=== PATIENT | male | born 1950 | race Hispanic/Latino ===

== ENCOUNTER 2024-04-02 13:59 | Emergency (ER) | payer OTHER, SELFPAY ==
[2024-04-02 14:18] VITALS: BP 120/84
--- NOTE | 2024-04-02 14:27 | ED.GENMED ---
ED Provider Triage
-
Patient seen by provider in Triage?: Seen in Triage
Attestation: A medical screening examination has been initiated by a qualified medical provider. Based on the assessment performed at this time, it has been determined that an emergent medical condition may exist and the patient has been informed
that further medical evaluation and possible additional diagnostic testing may be needed.
HPI: 73yoM here with R hip pain x 2 months after a fall. Had x-rays of R hip and MRI of pelvis in [facility]. MRI showed fracture of coccyx. Patient returned from DR cook. He is unable to bear weight and daughter believes he may need rehab
placement.
GENERAL: Alert , in no apparent distress
EYE: No visual abnormalities.
NECK: Trachea midline
ENT: No visible abnormalities.
LUNGS: No acute respiratory distress
NEUROLOGICAL: Alert and oriented
SKIN: Skin intact. No visible changes.
MUSCULOSKELETAL: Moving extremities normally
PSYCH: Normal and appropriate interaction.
This is a medical evaluation conducted in person to initiate diagnostic evaluation and provide initial therapeutics. Please see further documentation by the treating clinician.
X-rays of R hip ordered. PT and case management consults ordered.
History of Present Illness
General
Chief Complaint: Musculo-Skeletal Complaint
Course
Vital Signs
Initial and Last Documented VS:
Initial Vital Signs
Temp Pulse Resp BP Pulse Ox
97.7 F 116 16 120/84 98
04/02/24 14:18 04/02/24 14:18 04/02/24 14:18 04/02/24 14:18 04/02/24 14:18
Last Documented Vital Signs
Temp Pulse Resp BP Pulse Ox
97.7 F 116 16 120/84 98
04/02/24 14:18 04/02/24 14:18 04/02/24 14:18 04/02/24 14:18 04/02/24 14:18
ED Attending Note
-
Portions of this chart may have been created with voice recognition software.� Occasional wrong word or��sound alike� substitutions may have occurred due to the inherent limitations of voice recognition software.
Discharge Plan
Interventions
Interventions:
*Risk Screen - Suicide Last Done: 04/02/24 14:18
*General Assessment Last Done: 04/02/24 14:18
Discharge Date and Time
Print Language: TAMAZIGHT
[2024-04-02 17:48] VITALS: BMI 24.9
--- NOTE | 2024-04-02 18:20 | ED.GENMED ---
Addendum entered and electronically signed by Angela Shetty PA-C 04/04/24 10:07:
-
Patient seen by provider in Triage?: Seen in Triage
Attestation: A medical screening examination has been initiated by a qualified medical provider. Based on the assessment performed at this time, it has been determined that an emergent medical condition may exist and the patient has been informed
that further medical evaluation and possible additional diagnostic testing may be needed.
HPI: 73yoM here with R hip pain x 2 months after a fall. Had x-rays of R hip and MRI of pelvis in [facility]. MRI showed fracture of coccyx. Patient returned from DR today. He is unable to bear weight and daughter believes he may need rehab
placement.
GENERAL: Alert , in no apparent distress
EYE: No visual abnormalities.
NECK: Trachea midline
ENT: No visible abnormalities.
LUNGS: No acute respiratory distress
NEUROLOGICAL: Alert and oriented
SKIN: Skin intact. No visible changes.
MUSCULOSKELETAL: Moving extremities normally
PSYCH: Normal and appropriate interaction.
This is a medical evaluation conducted in person to initiate diagnostic evaluation and provide initial therapeutics. Please see further documentation by the treating clinician.
X-rays of R hip ordered. PT and case management consults ordered.
Original Note:
History of Present Illness
General
Chief Complaint: Musculo-Skeletal Complaint
Source: patient
Exam Limitations: none
Time Seen by Provider: 04/02/24 18:01
History of Present Illness
History of Present Illness:
This is a 73 year old male that comes in with c/o right hip pain. States that this has been going on for the past 2 months. States that it doesn't hurt every day but some days he can't hardly walk. Denies any fever, chills, chest pain, SOB, abd
pain, nausea, vomiting,. diarrhea, headache, dizziness, urinaryh burning.
Past History
Past History
ED Past Medical History: HTN and Other (Glaucoma)
ED Past Surgical History: None
Social History
Tobacco: Former smoker
Alcohol: Occasional
Personal:
Living: with family
Review of Systems
Review of Systems
All Other Systems: ROS reviewed and negative except as documented in HPI and ROS
Constitutional: Reports no symptoms; Denies fever or chills
EENT: Reports no symptoms
Respiratory: Reports no symptoms; Denies cough or trouble breathing
Cardiac: Reports no symptoms; Denies chest pain
ABD/GI: Reports no symptoms; Denies abdominal pain, nausea, vomiting or diarrhea
: Reports no symptoms; Denies dysuria, frequency or urgency
Musculoskeletal: Reports joint pain (right hip pain)
Skin: Reports no symptoms
Neurological: Reports no symptoms; Denies dizzy or headache
Psychiatric: Reports no symptoms
Phy Exam
General Physical Exam
General Presentation: well appearing and no apparent distress
General age: appears stated age
General Skin: warm and dry
General Habitus: elderly
General Mental: alert
General Hydration: appears well hydrated
ENT Exam
ENT Exam: TM's normal, pharynx normal and neck supple
Eye Exam
Eye Exam: EOMI
Cardiovascular Exam
Cardiovascular Exam: regular rate/rhythm, no murmur and normal peripheral pulses
Pulmonary Exam
Pulmonary Exam: lungs clear, no respiratory distress, no rales, chest non tender, no crackles, no rhonchi, no wheezing and no cough
Musculoskeletal Exam
Musculoskeletal Exam: full ROM, edema (Slight lower leg edema nonpitting) and other (negative for pain with flexion of the knee, inversion or eversion. Tenderness to palpation over right hip)
Skin Exam
Skin Exam: normal color, warm/dry, no rash and no petechia
Psychiatric Exam
Psychiatric Exam: normal mood/affect
Course
Orders/Labs/Results
Orders:
Orders
04/02/24 14:33
Case Management Consult ONCE
Case Management Consult: Discharge Planning
Hip, Right 2-3 Views [CR Hip - RT w/wo Pel 2-3 Vw*] Urgent
Comment:
Reason For Exam: pain
Include a pelvis x-ray?: Yes
Pt Eval And Treat Urgent
Activity Level: Out of Bed- Ad Blank
04/02/24 18:19
Acetaminophen [Tylenol] 1,000 mg PO NOW STA
Ketorolac [Toradol] 60 mg IM NOW STA
Vital Signs
Initial and Last Documented VS:
Initial Vital Signs
Temp Pulse Resp BP Pulse Ox
97.7 F 116 16 120/84 98
04/02/24 14:18 04/02/24 14:18 04/02/24 14:18 04/02/24 14:18 04/02/24 14:18
Last Documented Vital Signs
Temp Pulse Resp BP Pulse Ox
97.7 F 116 16 120/84 98
04/02/24 14:18 04/02/24 14:18 04/02/24 14:18 04/02/24 14:18 04/02/24 14:18
MDM/Problems Addressed
Differential Diagnosis Includes:
Degenerative changes. hip fracture
MDM/Problems Addressed:
This is a 73 year old male that comes in with c/o right hip pain. States that it doesn't hurt every day. States that this has been going on for the past 2 months.
Will get X-ray and medicate for pain.
Explained to patient that he had alternate with Tylenol 1000mg every 6 hours and ibuprofen 600mg every 6 hours for pain. Patient needs to see an powered bridge specialist. Patient to return with concerns.
Chronic conditions affecting care:
NA
Acute Exacerbation and/or Progression of Chronic Illness:
NA
*Radiology
Radiology exam reviewed: radiology read reviewed (right hip- NOrmal)
*Pulse Oximetry
Patient hypoxic: no
*EKG
Interpreted by ED Provider?: NA
Rate: EKG- N/A
*[employer] Worker Interpretation
Rate: [place] Worker- N/A
*Critical Care Note
Total Time (30-74mins, 75-104mins- exclusive of procedures): Not Applicable
ED Attending Note
-
Portions of this chart may have been created with voice recognition software.� Occasional wrong word or��sound alike� substitutions may have occurred due to the inherent limitations of voice recognition software.
Discharge Plan
Departure
Patient Disposition: Home (Routine Discharge)
Date of Disposition: 04/02/24
Time of Disposition: 18:25
Patient with high blood pressure during this ER visit?: No
Condition: Good
Covid-19: Not Applicable
Discharge Problem:
Hip pain, right
Instructions: Hip Pain ED
Referrals:
Ashwin Juan MD [Active] - Call in 1-3 days for appt
Activity Restrictions/Additional Instructions:
As discussed, your X-ray is negative for any fractures. Please use Tylenol 1000mg every 6 hours for pain and alternate with Ibuprofen 600mg every 6 hours with food for pain as needed. So if you take Tylenol at 9am you can take Ibuprofen at 12noon,
Tylenol at 3pm and Ibuprofen at 6pm. This is only if you are having pain. Please follow up with the correctional treatment specialist for further evaluation. IF YOU HAVE ANY OTHER CONCERNS PLEASE RETURN TO THE EMERGENCY ROOM.
Interventions
Interventions:
*Risk Screen - Suicide Last Done: 04/02/24 14:18
*General Assessment Last Done: 04/02/24 14:18
*Neglect/Abuse Screening Last Done: 04/02/24 17:48
*ED COVID-19 Vaccine History Last Done: 04/02/24 17:48
ED-Musculoskeletal Assessment Last Done: 04/02/24 17:48
Discharge Date and Time
Print Language: VIET[place]ESE
[2024-04-02] MEDS: TYLENOL 1000 MG PO (18:38)
== END 2024-04-02 18:52 | disposition home or self-care (01) ==
LOC: EMR 13:59
PROVIDERS: EMERGENCY PHYSICIAN Student in an Organized Health Care Education/Training Program
DX: M25.551 Pain in right hip (principal); W19.XXXA Unspecified fall, initial encounter; H40.9 Unspecified glaucoma; I10 Essential (primary) hypertension; Z87.891 Personal history of nicotine dependence
CPT/HCPCS: 99284; 96372; 73502

== ENCOUNTER → 2024-07-25 09:41 | Outpatient (REF) | payer OTHER, SELFPAY | LOC: RAD 09:41 | PROVIDERS: ATTENDING PHYSICIAN Orthopaedic Surgery Hand Surgery | DX: G54.0 Brachial plexus disorders (principal); R91.8 Other nonspecific abnormal finding of lung field | CPT/HCPCS: 71046 ==

== ENCOUNTER → 2024-09-28 08:29 | Outpatient (REF) | payer OTHER, SELFPAY | LOC: PAVMRI 08:29 | PROVIDERS: ATTENDING PHYSICIAN Orthopaedic Surgery Hand Surgery | DX: M48.02 Spinal stenosis, cervical region (principal); G54.0 Brachial plexus disorders; R20.2 Paresthesia of skin; R53.1 Weakness; R91.8 Other nonspecific abnormal finding of lung field | CPT/HCPCS: 72141 ==

== ENCOUNTER → 2024-09-30 17:42 | Outpatient (REF) | payer OTHER, SELFPAY | LOC: MRI 17:42 | PROVIDERS: ATTENDING PHYSICIAN Orthopaedic Surgery Hand Surgery; FAMILY PHYSICIAN Family Medicine | DX: G54.0 Brachial plexus disorders (principal); R20.2 Paresthesia of skin; R53.1 Weakness; R91.8 Other nonspecific abnormal finding of lung field | CPT/HCPCS: 73218 ==

== ENCOUNTER 2024-11-06 06:08 | Day surgery (SDC) | payer OTHER, SELFPAY ==
[2024-10-23 11:42] LABS: Hemoglobin 14.2 g/dL (13.0-18.0); Mean Corpuscular Hgb 28.6 pg (27.0-31.0); Mean Corpuscular Volume 86.7 fL (80.0-94.0); Mean Platelet Volume 10.1 fL (7.4-10.4); Platelet Count 212 10^3/uL (130-400); Red Blood Cell Count 4.96 10^6/uL (4.70-6.10); Red Cell Dist. Width 13.8 % (11.5-14.5); White Blood Cell Count 6.1 10^3/uL (4.8-10.8)
[2024-10-23 13:01] LABS: ALT (SGPT) 16 U/L (0-50); AST (SGOT) 22 U/L (17-59); Albumin 4.7 g/dl (3.5-5.0); Alkaline Phosphatase 65 U/L (38-126); Blood Urea Nitrogen 16 mg/dl (9-20); Calcium 9.6 mg/dl (8.4-10.2); Carbon Dioxide 23 mmol/L (22-30); Chloride 107 mmol/L (98-107); Glucose 81 mg/dl (70-99); Potassium 4.3 mmol/L (3.5-5.1); Sodium 141 mmol/L (135-145); Total Bilirubin 1.3 mg/dl (0.2-1.3); Total Protein 7.7 g/dl (6.3-8.2); eGFR > 60.00
[2024-10-23 13:44] VITALS: BMI 23.7
[2024-10-30 11:17] VITALS: BMI 23.7
[2024-11-06] VITALS (9 sets, daily range): BP systolic 131–150; BP diastolic 88–105; BMI 23.7
[2024-11-06] MEDS: NORMOSOL-R/PLASMALYTE-A 1000 IV (07:50)
[2024-11-06] MEDS: CELEBREX 200 MG PO (08:03)
[2024-11-06] MEDS: LYRICA 150 MG PO (08:03)
[2024-11-06] MEDS: TYLENOL 1000 MG PO (08:04)
[2024-11-06] MEDS: METHOCARBAMOL 1500 MG PO (08:04)
--- NOTE | 2024-11-06 08:09 | PTCARENOTE ---
Patient waited for staff for 1.15 hours to admit him. Daughter asked multiple times to come in. Patients IV started and daughter brought in during the admission process. Will monitor patient.
== END 2024-11-06 12:45 | disposition home or self-care (01) ==
LOC: SDS 06:08
PROVIDERS: ATTENDING PHYSICIAN Orthopaedic Surgery Orthopaedic Surgery of the Spine; FAMILY PHYSICIAN Student in an Organized Health Care Education/Training Program; OTHER PHYSICIAN Internal Medicine
DX: M48.02 Spinal stenosis, cervical region (principal); M50.322 Other cervical disc degeneration at C5-C6 level
CPT/HCPCS: 22551; 22853; 22552; 20930; 20931; 36415; 72020; 80053; 85027; 87070; C1713

== ENCOUNTER → 2025-04-07 11:29 | Outpatient (REF) | payer OTHER, SELFPAY | LOC: PAVMRI 11:29 | PROVIDERS: ATTENDING PHYSICIAN Orthopaedic Surgery Orthopaedic Surgery of the Spine; FAMILY PHYSICIAN Student in an Organized Health Care Education/Training Program | DX: M48.062 Spinal stenosis, lumbar region with neurogenic claudication (principal); M48.04 Spinal stenosis, thoracic region | CPT/HCPCS: 72157; 72158; A9575 ==